=== PATIENT | male | born 1975 | race Caucasian/White ===

== ENCOUNTER → 2017-02-20 | Outpatient (CLI) | payer MEDICARE ==
--- NOTE | 2017-02-20 13:32 | US ---
EXAMINATION TYPE: US venous doppler duplex LE RT DATE OF EXAM: 02/20/2017 12:50 PM COMPARISON: NONE CLINICAL HISTORY: Rt Leg M79.669 Pain in rt leg. SIDE PERFORMED: Right VESSELS IMAGED: External Iliac Vein (EIV) Common Femoral Vein Deep Femoral Vein Greater Saphenous Vein * Femoral Vein Popliteal Vein Small Saphenous Vein * Proximal Calf Veins (* superficial vessels) Right Leg: Negative for DVT IMPRESSION: 1. No diagnostic evidence of DVT as visualized
== END | disposition home or self-care (01) ==
LOC: RADUSWWP 12:47
PROVIDERS: ATTEND Family Medicine
DX: M79.669 Pain in unspecified lower leg (principal)

== ENCOUNTER 2017-08-28 13:07 | Emergency (ER) | payer MEDICARE ==
[2017-08-28 13:12] VITALS: TEMP 99.2
[2017-08-28] MEDS ORDERED: SODIUM CHLORIDE 0.9% 1,000 ML IV STA (13:19)
[2017-08-28] MEDS ORDERED: ONDANSETRON 4 MG/2 ML VIAL IVP STA (13:19)
[2017-08-28] MEDS ORDERED: HYDROmorphone 1 MG/ML 1 ML SYRINGE IVP STA (13:19)
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
[2017-08-28 14:20] LABS: Basophils % (A) 0 %; CH 30.7; Eosinophils % (A) 0 %; HDW 2.59; HGB 16.6 gm/dL (13.0-17.5); Luc # (Auto) 0.07; Luc % (Auto) 1; Lymphocytes % (A) 8 %; MCH 30.7 pg (25.0-35.0); MCHC 33.9 g/dL (31.0-37.0); MCV 90.6 fL (80.0-100.0); Mean Platelet Volume 7.7; Monocytes # (A) 0.4 k/uL (0-1.0); Monocytes % (A) 4 %; Neutrophils # (A) 10.2 k/uL (1.3-7.7); Neutrophils % (A) 87 %; RDW 13.1 % (11.5-15.5); WBC 11.7 k/uL (3.8-10.6); WBC (Perox) 11.58
--- NOTE | 2017-08-28 14:21 | XR ---
Abdomen HISTORY: Left-sided abdominal pain and vomiting Frontal view of the abdomen submitted on 2 images Lung bases are clear. There is no pneumoperitoneum or bowel obstruction evident. Suspect a scoliosis may be present. Bone mineralization is maintained. Difficult to exclude ureteral calcification on the left at this paraspinal location at the L3-4 disc space level. IMPRESSION: Indeterminate abdominal calcification. Scoliosis.
[2017-08-28 14:33] LABS: ALT 69 U/L (21-72); AST 44 U/L (17-59); Alkaline Phosphatase 74 U/L (38-126); Amylase 49 U/L (30-110); Anion Gap 15 mmol/L; Blood Urea Nitrogen 14 mg/dL (9-20); Calcium 9.5 mg/dL (8.4-10.2); Carbon Dioxide 20 mmol/L (22-30); Chloride 105 mmol/L (98-107); Glucose 159 mg/dL (74-99); Non-African American GFR(MDRD) >60 (>60 ml/min/1.73 sqM); Potassium 4.6 mmol/L (3.5-5.1); Sodium 140 mmol/L (137-145); Total Bilirubin 0.7 mg/dL (0.2-1.3); Total Protein 7.5 g/dL (6.3-8.2)
[2017-08-28] MEDS ORDERED: KETOROLAC 30 MG/ML 1 ML VIAL IVP STA (14:50)
[2017-08-28 15:11] VITALS: BP 154/82; PULSE 75; RESP 16
[2017-08-28 15:37] LABS: Appearance,Urine Clear (Clear); Bilirubin,Urine Negative (Negative); Glucose,Urine (UA) Negative (Negative); Ketones,Urine Negative (Negative); Leukocyte Esterase,Urine Negative (Negative); Mucus,Urine Rare /hpf; Nitrite,Urine Negative (Negative); PH, Urine 5.5 (5.0-8.0); Particle Count 1044; Protein,Urine Trace (Negative); RBC,Urine 6 /hpf (0-5); Specific Gravity,Urine 1.012 (1.001-1.035); UA Billing (MACRO vs. MICRO) MICRO; Urobilinogen,Urine <2.0 mg/dL (<2.0); WBC,Urine 1 /hpf (0-5)
== END 2017-08-28 15:58 | disposition home or self-care (01) ==
LOC: EC 13:07
DX: N20.0 Calculus of kidney (principal); Z87.891 Personal history of nicotine dependence; Z79.84 Long term (current) use of oral hypoglycemic drugs; Z85.89 Personal history of malignant neoplasm of other organs and systems; Z88.2 Allergy status to sulfonamides; Z98.890 Other specified postprocedural states
CPT/HCPCS: 99284 ×2; 96374 ×2; 96375 ×3; 96361 ×2; 36415; 80053; 82150; 82009; 83690; 85025; 81001; 74000; J2405; J1885; J1170

== ENCOUNTER 2017-08-30 12:42 | Inpatient (IN) | payer MEDICARE ==
[2017-08-30] MEDS ORDERED: MORPHINE SULFATE 10 MG/ML SYRINGE IV ONE (14:05)
[2017-08-30] MEDS ORDERED: SODIUM CHLORIDE 0.9% 2,000 ML IV ONE (14:05)
[2017-08-30] MEDS ORDERED: KETOROLAC 30 MG/ML 1 ML VIAL IVP STA (14:05)
[2017-08-30] MEDS ORDERED: ONDANSETRON 4 MG/2 ML VIAL IVP STA (14:06)
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
[2017-08-30 14:26] LABS: Basophils % (A) 0 %; CH 31.9; CHCM 34.8; Eosinophils # (A) 0.2 k/uL (0-0.7); Eosinophils % (A) 1 %; HCT 45.8 % (39.0-53.0); HDW 2.52; HGB 15.4 gm/dL (13.0-17.5); Luc # (Auto) 0.07; Luc % (Auto) 1; Lymphocytes # (A) 1.1 k/uL (1.0-4.8); Lymphocytes % (A) 9 %; MCH 30.9 pg (25.0-35.0); MCHC 33.6 g/dL (31.0-37.0); MCV 91.9 fL (80.0-100.0); Mean Platelet Volume 7.8; Monocytes # (A) 0.8 k/uL (0-1.0); Monocytes % (A) 7 %; Neutrophils # (A) 9.9 k/uL (1.3-7.7); Neutrophils % (A) 82 %; RBC 4.99 m/uL (4.30-5.90); WBC (Perox) 11.47
[2017-08-30 14:45] LABS: Potassium 4.3 mmol/L (3.5-5.1)
--- NOTE | 2017-08-30 15:09 | CT ---
EXAMINATION TYPE: CT renal stones wo con DATE OF EXAM: 08/30/2017 HISTORY: Patient complains of left flank pain and constipation x4 days. Patient has a history of vinay or renal stones. CT DLP: 1200 mGycm. Automated Exposure Control for Dose Reduction was Utilized. TECHNIQUE: CT scan of the abdomen and pelvis is performed without oral or IV contrast. COMPARISON: NONE FINDINGS: Within the limitations of a non-contrast study, the following observations are made. LUNG BASES: No significant abnormality is appreciated. LIVER/GB: Hepatic parenchyma is diffusely hypoattenuated compatible with at least mild if not moderat e hepatic steatosis. Gallbladder is contracted with a single calculus near the gallbladder neck measu ring 6 mm. PANCREAS: No significant abnormality is seen. SPLEEN: No significant abnormality is seen. ADRENALS: No significant abnormality is seen. KIDNEYS: 5 mm right nonobstructing upper pole calculus is seen as well as a 3 mm mid pole calculus, a 2 mm midpole calculus, a 3 mm mid pole calculus and a punctate 1 mm lower pole nonobstructing calcul us. There is mild left hydronephrosis secondary to an obstructing left 5 mm calculus at the ureterope lvic junction with inflammatory fat stranding surrounding the renal pelvis and calyces, which may rep resent reactive inflammatory change and/or calyceal rupture. Additional 2 to 3 mm nonobstructive left upper pole renal calculus is seen. GENITAL ORGANS: Prostate gland is heterogenous containing central gland calcifications. Bilateral fat filled inguinal hernias are present. LYMPH NODES: No greater than 1cm abdominal or pelvic lymph nodes are appreciated. OSSEOUS STRUCTURES: No significant abnormality is seen. Minimal degenerative changes. BOWEL: Moderate amount retained stool seen within the cecum and ascending colon. No enlarged bowel to indicate obstruction is seen.. IMPRESSION: 1. Obstructing left 5 mm calculus at the ureteropelvic junction with inflammatory fat stranding surro unding the renal pelvis and calyces, which may represent reactive inflammatory change and/or calyceal rupture. 2. Additional nonobstructing bilateral renal calculi as described above. 3. Mild to moderate hepatic steatosis.
[2017-08-30 15:27] LABS: Appearance,Urine Clear (Clear); Bilirubin,Urine Negative (Negative); Glucose,Urine (UA) 2+ (Negative); Ketones,Urine Negative (Negative); Leukocyte Esterase,Urine Negative (Negative); Mucus,Urine Rare /hpf; Nitrite,Urine Negative (Negative); PH, Urine 5.5 (5.0-8.0); Particle Count 852; Protein,Urine Negative (Negative); RBC,Urine 2 /hpf (0-5); Specific Gravity,Urine 1.019 (1.001-1.035); UA Billing (MACRO vs. MICRO) MICRO; Urobilinogen,Urine <2.0 mg/dL (<2.0); WBC,Urine 1 /hpf (0-5)
[2017-08-30] MEDS ORDERED: TAMSULOSIN 0.4 MG CAP.ER.24H PO STA (15:33)
[2017-08-30] MEDS: SODIUM CHLORIDE 0.9% 1,000 ML IV SCH (15:47)
[2017-08-30] MEDS ORDERED: MORPHINE SULFATE 4 MG/ML SYRINGE IV PRN (16:16)
[2017-08-30] MEDS ORDERED: ACETAMINOPHEN TAB 325 MG TAB PO PRN (16:16)
[2017-08-30] MEDS ORDERED: DOCUSATE 100 MG CAP PO PRN (16:16)
[2017-08-30] MEDS ORDERED: NALOXONE 0.4 MG/ML 1 ML VIAL IV PRN (16:16)
[2017-08-30] MEDS ORDERED: HYDROcodone/APAP 5-325MG 1 EACH TAB PO PRN (16:16)
[2017-08-30 18:24] VITALS: BMI 33.1
[2017-08-30] MEDS: KETOROLAC 30 MG/ML 1 ML VIAL IVP PRN (20:27)
[2017-08-30 20:29] LABS: Glucose,Whole Blood 179 mg/dL (75-99)
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
[2017-08-31] MEDS: SODIUM CHLORIDE 0.9% 1,000 ML IV SCH ×2 (01:59→05:45)
[2017-08-31 03:03] VITALS: RESP 16
[2017-08-31] MEDS: KETOROLAC 30 MG/ML 1 ML VIAL IVP PRN ×2 (03:35→10:02)
[2017-08-31 06:57] LABS: Glucose,Whole Blood 104 mg/dL (75-99)
[2017-08-31 07:21] LABS: Basophils # (A) 0.1 k/uL (0-0.2); Basophils % (A) 1 %; CH 30.8; CHCM 33.3; Eosinophils # (A) 0.2 k/uL (0-0.7); Eosinophils % (A) 2 %; HCT 42.2 % (39.0-53.0); HDW 2.51; HGB 14.3 gm/dL (13.0-17.5); Luc # (Auto) 0.11; Luc % (Auto) 1; Lymphocytes # (A) 1.3 k/uL (1.0-4.8); Lymphocytes % (A) 14 %; MCH 31.4 pg (25.0-35.0); MCHC 33.8 g/dL (31.0-37.0); MCV 93.1 fL (80.0-100.0); Mean Platelet Volume 7.5; Monocytes # (A) 0.6 k/uL (0-1.0); Monocytes % (A) 7 %; Neutrophils # (A) 7.5 k/uL (1.3-7.7); Neutrophils % (A) 76 %; RBC 4.53 m/uL (4.30-5.90); RDW 13.1 % (11.5-15.5); WBC 9.8 k/uL (3.8-10.6); WBC (Perox) 10.36
[2017-08-31 07:43] LABS: Anion Gap 9 mmol/L; Blood Urea Nitrogen 17 mg/dL (9-20); Calcium 8.3 mg/dL (8.4-10.2); Carbon Dioxide 24 mmol/L (22-30); Chloride 107 mmol/L (98-107); Glucose 104 mg/dL (74-99); Non-African American GFR(MDRD) 50 (>60 ml/min/1.73 sqM); Potassium 4.3 mmol/L (3.5-5.1); Sodium 140 mmol/L (137-145)
--- NOTE | 2017-08-31 07:58 | P.DS ---
Providers Date of admission: 08/30/17 16:19 Expected date of discharge: 08/31/17 Attending physician: Joshua Mendoza Primary care physician: Chavez Nascimento [place] Hospital Course: Patient admitted with left renal colic. Received parental analgesics. Comfortable at time of discharge. Pertinent Studies: CT shows left hydronephrosis due to a 5 mm left UPJ calculus. Patient elected to undergo ESWL; this was discussed in detail, including risks, rationale, likelihood of success, alternative treatment options, and possible need for secondary procedures. This will be performed 09/10/2017. Patient Condition at Discharge: Good Plan - Discharge Summary New Discharge Prescriptions: New Hydrocodone/Acetaminophen [[place] 5-325] 1 - 2 each PO Q4HR PRN #30 tab PRN Reason: Pain No Action metFORMIN HCL [Glucophage] 500 mg PO BID Ibuprofen [Motrin] 800 mg PO Q6HR #30 tab Tamsulosin [Flomax] 0.4 mg PO DAILY #10 cap Hydrocodone/Acetaminophen [[place] 5-325] 2 each PO Q6HR PRN PRN Reason: Pain Tetrahydrozoline 0.05% Ophth [Visine Eye Drops] 1 drop BOTH EYES QID Discharge Medication List metFORMIN HCL [Glucophage] 500 mg PO BID 09/24/15 [History] Ibuprofen [Motrin] 800 mg PO Q6HR #30 tab 08/28/17 [Rx] Tamsulosin [Flomax] 0.4 mg PO DAILY #10 cap 08/28/17 [Rx] Hydrocodone/Acetaminophen [[place] 5-325] 2 each PO Q6HR PRN 08/30/17 [History] Tetrahydrozoline 0.05% Ophth [Visine Eye Drops] 1 drop BOTH EYES QID 08/30/17 [ History] Hydrocodone/Acetaminophen [[place] 5-325] 1 - 2 each PO Q4HR PRN #30 tab 08/31/17 [Rx] Follow up Appointment(s)/Referral(s): Chavez Nascimento DO [Primary Care Provider] - 1-2 days Activity/Diet/Wound Care/Special Instructions: Strain urine. Plenty of fluids. Diet and activity as tolerated. Our office will contact patient regarding follow up. Discharge Disposition: HOME SELF-CARE
[2017-08-31] MEDS ORDERED: TAMSULOSIN 0.4 MG CAP.ER.24H PO SCH (08:30)
[2017-08-31] MEDS ORDERED: TETRAHYDROZOLINE 0.05% OPHTH DROPS 15 ML BTL BOTH EYES SCH (09:00)
[2017-08-31 11:19] VITALS: BP 142/77; PULSE 93; TEMP 99
== END 2017-08-31 14:33 | disposition home or self-care (01) | DRG 694 ==
LOC: EC 12:42 → 3SUR 16:19
PROVIDERS: ADMIT Urology; ATTEND Urology
DX: N13.2 Hydronephrosis with renal and ureteral calculous obstruction (principal); N17.9 Acute kidney failure, unspecified; E11.9 Type 2 diabetes mellitus without complications; G40.909 Epilepsy, unspecified, not intractable, without status epilepticus; Z79.84 Long term (current) use of oral hypoglycemic drugs; Z79.899 Other long term (current) drug therapy; Z85.819 Personal history of malignant neoplasm of unspecified site of lip, oral cavity, and pharynx; Z87.442 Personal history of urinary calculi; Z87.891 Personal history of nicotine dependence; Z88.1 Allergy status to other antibiotic agents; Z88.2 Allergy status to sulfonamides
CPT/HCPCS: 36415; 74000; 74150; 80048; 80053; 81001; 82009; 82150; 83690; 85025; 96361; 96365; 96374; 96375; 99284; 99285

== ENCOUNTER 2017-11-09 08:51 | Day surgery (SDC) | payer MEDICARE ==
[2017-11-07 10:38] VITALS: BMI 33.0
--- NOTE | 2017-11-08 11:56 | HP ---
HISTORY AND PHYSICAL CHIEF COMPLAINT: Right knee pain. HISTORY OF PRESENT ILLNESS: The patient is a 41-year-old [employer] employee who presents with progressive right knee pain after an injury in March of this year. He notes his knee continues to be painful and gives out intermittently. He has been working with restrictions. He is taking anti-inflammatories with only partial temporary relief. PAST MEDICAL HISTORY: Significant for type 2 diabetes. PAST SURGICAL HISTORY: Negative. CURRENT MEDICATIONS: Ibuprofen. ALLERGIES: He has allergies to BACTRIM. FAMILY HISTORY: Significant for aneurysm. SOCIAL HISTORY: Significant for previous tobacco use; however, he quit in 2004. REVIEW OF SYSTEMS: Sixteen point review of systems otherwise reviewed and is noncontributory. PHYSICAL EXAMINATION: On examination, the patient is approximately 5 feet 10 inches, 229 pounds of endomorphic habitus. HEENT exam is nonfocal. Neck is supple. He has painless passive motion of the right hip. Straight leg raise is negative. Active motion right knee -8 to 125 degrees of flexion. He is tender about the medial and lateral joint line. Collaterals are stable, Berhane's negative, Michael's elicits medial and lateral pain. His distal neurovascular exam appears intact in the right lower extremity. MRI report 07/31/2017 of the right knee shows a posterior lateral meniscal tear. IMPRESSION: 1. Right knee internal derangement with symptomatic lateral meniscal tear. 2. Dsg-wysgaxz-ncmbfduue diabetes. RECOMMENDATIONS: I talked to the patient at length regarding his treatment options. At this point, he is quite symptomatic, having pain and mechanical symptoms daily that limit him. After thorough discussion, he opts to proceed with surgery. We will plan to proceed with arthroscopic evaluation with possible partial lateral meniscectomy. We will likely perform that as an outpatient procedure. Risks and benefits were discussed at length in layman's terms. MMODL / IJN: [id number] /
[~2017-11-09 08:51] MED LIST: DEXAMETHASONE SOD PHOSPHATE 10 MG/ML 1 ML VIAL IV ONE; HYDROmorphone 0.5 MG/0.5 ML SYRINGE IVP PRN; LACTATED RINGERS 1,000 ML IV SCH; LIDOCAINE 1% 20 ML VIAL (10MG/ML) FOR IV START INTRADERMA PRN; MIDAZOLAM 2 MG/2 ML VIAL IV PRN; ONDANSETRON 4 MG/2 ML VIAL IVP ONE; Pre Op ABX Message 1 EACH MISC MISCELLANE ONE; SCOPOLAMINE 1.5MG/72HR PATCH TRANSDERM ONE
[2017-11-09 10:10] LABS: Glucose,Whole Blood 138 mg/dL (75-99)
[2017-11-09] MEDS ORDERED: LIDOCAINE 1% INJ 10MG/ML (20 ML MDV) ONE (10:16)
[2017-11-09] MEDS ORDERED: PROPOFOL 10 MG/ML 20 ML VIAL IV ONE (10:16)
[2017-11-09] MEDS ORDERED: HYDROmorphone (PF) 1 MG/ML ONE (10:16)
[2017-11-09] MEDS ORDERED: fentaNYL (PF) 50 MCG/ML 2 ML AMP ONE (10:16)
[2017-11-09] MEDS ORDERED: MIDAZOLAM 2 MG/2 ML VIAL ONE (10:16)
[2017-11-09] MEDS ORDERED: KETOROLAC 30 MG/ML 1 ML VIAL ONE (10:16)
[2017-11-09] MEDS ORDERED: EPINEPHrine (PF) 1 ML in SODIUM CHLORIDE 0.9% IRRIGATIO 3,000 ML IRRIGATION ONE ×4 (10:40)
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
[2017-11-09 11:10] VITALS: TEMP 97.7
[2017-11-09 11:17] LABS: Glucose,Whole Blood 151 mg/dL (75-99)
[2017-11-09 11:35] VITALS: RESP 16
[2017-11-09 12:47] VITALS: BP 129/75; PULSE 73
== END 2017-11-09 14:03 | disposition home or self-care (01) ==
LOC: OR 08:51
PROVIDERS: ATTEND Orthopaedic Surgery
DX: S83.281A Other tear of lateral meniscus, current injury, right knee, initial encounter (principal); X58.XXXA Exposure to other specified factors, initial encounter; M65.861 Other synovitis and tenosynovitis, right lower leg; M17.11 Unilateral primary osteoarthritis, right knee; E11.9 Type 2 diabetes mellitus without complications; Z88.1 Allergy status to other antibiotic agents; Z79.899 Other long term (current) drug therapy; Z87.891 Personal history of nicotine dependence
CPT/HCPCS: 29881; 29876; J2250; J1100; J2405; J0171; J2001; J3010; J1885; J1170; J2704

== ENCOUNTER → 2018-03-15 | Outpatient (CLI) | payer MEDICARE ==
--- NOTE | 2018-03-18 09:44 | MR ---
MR right hip HISTORY: Pain in right hip Multiplanar multisequence imaging through the pelvis with small [id number] images of the right hip and correlated to plain film 02/25/2018 from outside institution There is no sizable joint effusion. Bone marrow signal is maintained. Articular cartilage signal is m aintained. No fracture or dislocation. The medial aspect of the right hip there is a focal low signal area best seen on the coronal and axial T2-weighted sequences which may represent a small plica lucio cent to ligamentum teres. Small bone excrescences are noted along the femoral head neck region bilaterally. Suspect some degene rative signal along the anterior superior labrum best seen on sagittal images. 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
== END ==
LOC: RADMRIMAIN 09:41
PROVIDERS: ATTEND Orthopaedic Surgery
DX: M25.859 Other specified joint disorders, unspecified hip (principal)

== ENCOUNTER → 2019-04-11 | Outpatient (CLI) | payer MEDICARE ==
[2019-04-11 13:37] LABS: Blood Urea Nitrogen 15 mg/dL (9-20)
--- NOTE | 2019-04-11 14:42 | CT ---
EXAMINATION TYPE: CT soft tissue neck w con DATE OF EXAM: 04/11/2019 HISTORY: Neck pain on left side where cancer was previously removed. COMPARISON: CT brain dated 09/24/2015 CT DLP: 695 mGycm. Automated Exposure Control for Dose Reduction was Utilized. TECHNIQUE: CT scan of the neck is performed with IV Contrast, patient injected with 100 mL of Isovue M300, axial images are obtained, coronal and sagittal reformatted images are reviewed. FINDINGS: Airway: Airway appears patent. Parotid/submandibular glands: There has been resection of the left submandibular gland and surroundin g soft tissues. The parotid gland is markedly atrophic, possibly post radiation change. The right par otid gland and submandibular gland are unremarkable. No abnormal soft tissue density or enhancement i s seen in the surgical bed to suggest local recurrence. Linear soft tissue density surrounding the schultz rgical clips likely represents scar tissue/fibrosis. No surrounding adenopathy. Carotid/Vascular Structures: There is a conventional three-vessel branch pattern of the aortic arch. The left common carotid artery is slightly diminutive in comparison to the right however no significa nt atherosclerosis is seen. Within the carotid bulbs there is only minimal nonhemodynamically signifi cant atherosclerosis, similar within the right proximal carotid artery. No hemodynamically significan t stenosis is seen. Vertebral arteries are also patent. Osseous Structures: Calvarial defects as described above. Visualized paranasal sinuses and mastoid ai r cells are well aerated. There are few sclerotic foci of the mastoids, that may represent bone islan ds as these are present on the exam of 09/24/2015. Moderate degenerative change of the mid to lower c ervical spine as seen. Other: The visualized portions of the brain demonstrate a right frontotemporal craniotomy with focal craniectomy change. There is subsequent bitemporal encephalomalacia, right greater than left. There i s also encephalomalacia of the right frontal gyrus rectus. Peripheral sulcal prominence and ventricul ar prominence related to volume loss. Scattered areas of atelectasis are seen dependently in the lungs. IMPRESSION: 1. Prior left parotid gland resection with resection of the left platysma muscle and surrounding soft tissues. No abnormal enhancement, focal mass, or adenopathy is seen in the resection cavity to sugge st local recurrence. 2. Multifocal encephalomalacia and postsurgical change of the left temporal, right frontal, and right temporal lobes.
== END | disposition home or self-care (01) ==
LOC: RADCTMAIN 12:43
PROVIDERS: ATTEND Physician Assistant
DX: M54.2 Cervicalgia (principal); Z98.890 Other specified postprocedural states
CPT/HCPCS: 82565; 84520; 70491; 36415; Q9967

== ENCOUNTER 2019-05-09 14:13 | Emergency (ER) | payer MEDICARE ==
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
[2019-05-09 15:08] VITALS: BP 137/78; PULSE 87; RESP 16; TEMP 98.2
== END 2019-05-09 15:07 | disposition home or self-care (01) ==
LOC: EC 14:13
DX: K08.89 Other specified disorders of teeth and supporting structures (principal); R22.0 Localized swelling, mass and lump, head; Z85.89 Personal history of malignant neoplasm of other organs and systems; Z87.891 Personal history of nicotine dependence; Z79.899 Other long term (current) drug therapy; Z88.1 Allergy status to other antibiotic agents; Z88.2 Allergy status to sulfonamides
CPT/HCPCS: 99283

== ENCOUNTER 2019-05-16 15:39 | Emergency (ER) | payer MEDICARE ==
[2019-05-16 15:43] VITALS: BP 145/94; PULSE 95; RESP 20; TEMP 97.6
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
== END 2019-05-16 16:34 | disposition home or self-care (01) ==
LOC: EC 15:39
DX: K08.89 Other specified disorders of teeth and supporting structures (principal); Z85.89 Personal history of malignant neoplasm of other organs and systems; Z87.891 Personal history of nicotine dependence; Z79.899 Other long term (current) drug therapy; Z88.1 Allergy status to other antibiotic agents; Z88.2 Allergy status to sulfonamides
CPT/HCPCS: 99281

== ENCOUNTER → 2020-06-16 | Outpatient (CLI) | payer MEDICARE ==
--- NOTE | 2020-06-16 13:17 | XR ---
EXAMINATION TYPE: XR KUB DATE OF EXAM: 06/16/2020 12:08 PM CLINICAL HISTORY: Renal colic. Left-sided kidney stone. TECHNIQUE: Supine images of the abdomen and pelvis were obtained COMPARISON: None. FINDINGS: Right upper quadrant surgical clips. A few tiny densities overlie the left kidney, however appears similar to adjacent overlapping fecal debris and are nonspecific for renal calculi. The previ ously demonstrated calcification at the level of L3-4 paraspinal on the left on 2017 comparison is no t seen on current examination. Scattered gas is seen in non-distended small bowel loops. Gas and feca l material is seen in non-distended colon. There is no visceromegaly. Pneumoperitoneum not demonstrat ed within limits of supine examination. The osseous structures are intact. IMPRESSION: 1. Previously described likely left mid ureteral calcification on 2017 comparison not seen on curren t examination. 2. Tiny densities overlying the left renal shadow may represent tiny nephrolithiasis versus fecal de bris. 3. Nonobstructive bowel gas pattern.
== END | disposition home or self-care (01) ==
LOC: RADXRMAIN 11:54
PROVIDERS: ATTEND Urology
DX: N20.0 Calculus of kidney (principal); N23 Unspecified renal colic
CPT/HCPCS: 74018

== ENCOUNTER → 2020-07-31 | Outpatient (CLI) | payer MEDICARE ==
--- NOTE | 2020-07-31 16:12 | MR ---
EXAMINATION TYPE: MR hip RT wo con DATE OF EXAM: 07/31/2020 COMPARISON: None HISTORY: R hip pain Multiplanar multiecho imaging of the pelvis and right hip was performed without contrast. Pelvic ring appears intact. Proximal femurs are intact. There is no evidence of hip dysplasia. There is no significant hip joint effusion. There is no sign of avascular necrosis. There is increased fluid signal lateral to the right iliac crest. There is no evidence of a soft tiss ue mass. There is no evidence of pelvic mass. There is no free fluid in the pelvis. IMPRESSION: There is 5 x 2 cm area of increased signal on the T2 images in the soft tissues posterior and lateral to the right iliac crest consistent with some bruising and edema. No fracture seen. Normal hip joint s.
== END | disposition home or self-care (01) ==
LOC: RADMRIMAIN 10:21
PROVIDERS: ATTEND Orthopaedic Surgery
DX: R93.7 Abnormal findings on diagnostic imaging of other parts of musculoskeletal system (principal)

== ENCOUNTER → 2021-08-31 | Outpatient (CLI) | payer MEDICARE ==
[2021-08-31 22:36] LABS: ALT 43 U/L (10-49); AST 26 U/L (14-35)
== END | disposition home or self-care (01) ==
LOC: LABWHC1 13:06
PROVIDERS: ATTEND Podiatrist Foot & Ankle Surgery
DX: K74.60 Unspecified cirrhosis of liver (principal)
CPT/HCPCS: 36415; 84450; 84460

== ENCOUNTER → 2022-01-06 | Outpatient (CLI) | payer MEDICARE ==
[2022-01-06 14:33] LABS: Basophils # (A) 0.04 X 10*3/uL (0.00-0.10); Basophils % (A) 0.5 %; Eosinophils # (A) 0.18 X 10*3/uL (0.04-0.35); Eosinophils % (A) 2.3 %; HCT 46.9 % (39.6-50.0); HGB 15.7 g/dL (13.0-17.0); Immature Grans, Automated 0.3 %; Lymphocytes # (A) 2.07 X 10*3/uL (0.90-5.00); Lymphocytes % (A) 26.8 %; MCH 29.5 pg (27.0-32.0); MCHC 33.5 g/dL (32.0-37.0); MCV 88.2 fL (80.0-97.0); Mean Platelet Volume 11.4 fL (9.5-12.2); Monocytes # (A) 0.67 X 10*3/uL (0.20-1.00); Monocytes % (A) 8.7 %; NRBC Per 100 WBC 0 /100 WBCS (0.0-0.0); Neutrophils # (A) 4.75 X 10*3/uL (1.80-7.70); Neutrophils % (A) 61.4 %; Platelet Count 194 X 10*3/uL (140-440); RBC 5.32 X 10*6/uL (4.40-5.60); RDW 12.8 % (11.5-14.5); WBC 7.73 X 10*3/uL (4.50-10.00)
[2022-01-06 14:37] LABS: C Reactive Protein <0.30 mg/dL (0.00-0.80); Rheumatoid Factor, Qnt <10 IU/mL (0-15)
[2022-01-06 18:49] LABS: Erythrocyte Sedimentation Rate 2 mm/Hr (0-15)
[2022-01-06 19:12] LABS: Anti-DNA, DS unit <1.0 IU/mL; DNA Double-Stranded NEGATIVE (NEGATIVE)
[2022-01-07 09:46] LABS: HLA B27 NEGATIVE
== END | disposition home or self-care (01) ==
LOC: LABWHC1 09:43
PROVIDERS: ATTEND Orthopaedic Surgery
DX: M25.50 Pain in unspecified joint (principal)
CPT/HCPCS: 36415; 84550; 85025; 85652; 86038; 86039; 86140; 86225; 86431; 86812